=== PATIENT | female | born 1985 | race Caucasian/White ===

== ENCOUNTER 2018-08-08 19:31 | Emergency (ER) | payer MEDICAID ==
[~2018-08-08] VITALS: Ht 152.4 cm; Wt 98.6 kg
[2018-08-08 19:50] VITALS: TEMP 99
[2018-08-08] MEDS ORDERED: ZOMIG5 MG PO (20:49)
[2018-08-08] MEDS ORDERED: PRENATAL (21:11)
[2018-08-08] MEDS ORDERED: ZITHROMAX 250M250 MG PO (22:48)
[2018-08-08 22:57] VITALS: BP 111/70; PULSE 64
== END 2018-08-08 22:59 | disposition home or self-care (01) ==
LOC: COL.ER 19:31
DX: O99.511 Diseases of the respiratory system complicating pregnancy, first trimester (principal); J45.909 Unspecified asthma, uncomplicated; Z3A.12 12 weeks gestation of pregnancy